=== PATIENT | female | born 1960 | race Caucasian/White ===

== ENCOUNTER 2018-09-30 14:20 | Emergency (ER) | payer BC ==
[2018-09-30 15:47] VITALS: BP 145/57
--- NOTE | 2018-09-30 16:03 | UC ---
Respiratory Complaint HPI - HPI Summary HPI Summary: Pt c/o cough,nasal congestion X 2 weeks. Pt is concerned that she has bronchitis and is requesting an antibiotics. Pt also c/o of "constant runny nose " - History of Current Complaint Chief Complaint: UCRespiratory Stated Complaint: RUNNY NOSE,COUGH,CONGESTION Time Seen by Provider: 09/30/18 15:44 Hx Obtained From: Patient Hx Last Menstrual Period: n/a ?: No Onset/Duration: Gradual Onset, Lasting Weeks, Still Present Timing: Constant Severity Initially: Mild Severity Currently: Moderate Pain Intensity: 0 Character: Cough: Productive Aggravating Factors: Deep Breaths, Recumbent Position Alleviating Factors: Nothing Associated Signs And Symptoms: Positive: URI, Nasal Congestion - Risk Factors Pulmonary Embolism Risk Factors: Smoking Cardiac Risk Factors: Smoking Tuberculosis Risk Factors: Smoking - Allergies/Home Medications Allergies/Adverse Reactions: Allergies Allergy/AdvReac Type Severity Reaction Status Date / Time ciprofloxacin [From Cipro] Allergy Severe Verified 09/30/18 15:49 joint pain erythromycin base Allergy Rash Verified 09/30/18 15:49 Home Medications: Home Medications Cholecalciferol (Vitamin D3) [Vitamin D3] 2,000 unit PO DAILY 09/30/18 [History Confirmed 09/30/18] Naproxen Sodium [Naproxen 220 mg] 220 mg PO DAILY PRN 09/30/18 [History Confirmed 09/30/18] Pro-Air Inhaler 2 puff INH DAILY PRN 09/30/18 [History] Spiriva Inhaler DEVICE* [Tiotropium Inhaler DEVICE*] 2 puff INH DAILY 09/30/18 [ History Confirmed 09/30/18] PMH/Surg Hx/FS Hx/Imm Hx Previously Healthy: Yes Respiratory History: COPD - Surgical History Surgical History: Yes Surgery Procedure, Year, and Place: 2013--SUBCLAVIAN STENT FAILED - [place]. 2013 SUBCLAVIAN BYPASS GRAFT - [place] ( [employer] ICAST BALLOON EXPANDABLE STENT - SPECIFIC SCANNING INFORMATION IN EMR W/ OP REPORT-) Left shoulder repairs; manipulated 05/2016. L. 2015 SUBCLAVIAN BYPASS GRAFT REPEATED( VESSELS CLIPPED,CLEARED FOR 1.5T ONLY BY DR MARTINS), REVERSAL 10/2015 DUE TO INFECTION- GRAFT REMOVED - [place]. - Family History Known Family History: Positive: Hypertension - Social History Occupation: Employed Full-time Lives: With Family Alcohol Use: Daily Alcohol Amount: 3-4 PER DAY Substance Use Type: None Smoking Status (MU): Heavy Every Day Tobacco Smoker Type: Cigarettes Amount Used/How Often: 1 PPD Length of Time of Smoking/Using Tobacco: 40 YRS Have You Smoked in the Last Year: Yes - PT HAS RX FOR PATCH - Immunization History Most Recent Influenza Vaccination: never Most Recent Tetanus Shot: unknown Most Recent Pneumonia Vaccination: never Review of Systems All Other Systems Reviewed And Are Negative: Yes Constitutional: Positive: Fatigue Skin: Positive: Negative Eyes: Positive: Negative ENT: Positive: Sinus Congestion Respiratory: Positive: Cough Cardiovascular: Positive: Negative Gastrointestinal: Positive: Negative Genitourinary: Positive: Negative Motor: Positive: Negative Neurovascular: Positive: Negative Musculoskeletal: Positive: Negative Neurological: Positive: Negative Psychological: Positive: Negative Is Patient Immunocompromised?: No Physical Exam Triage Information Reviewed: Yes Appearance: Ill-Appearing Vital Signs: Initial Vital Signs Temp 97.8 F 09/30/18 15:36 Pulse 92 09/30/18 15:36 Resp 18 09/30/18 15:36 BP 145/57 09/30/18 15:36 Pulse Ox 100 09/30/18 15:36 Vital Signs Reviewed: Yes Eye Exam: Normal ENT: Positive: Nasal congestion Dental Exam: Normal Neck exam: Normal Respiratory: Positive: Wheezing, Expiration Cardiovascular Exam: Normal Musculoskeletal Exam: Normal Neurological Exam: Normal Psychological Exam: Normal Skin Exam: Normal UC Diagnostic Evaluation - Laboratory O2 Sat by Pulse Oximetry: 100 Respiratory Course/Dx - Differential Dx/Diagnosis Differential Diagnosis/HQI/PQRI: Bronchitis, Influenza Provider Diagnosis: Bronchitis, Allergic rhinitis Discharge - Sign-Out/Discharge Documenting (check all that apply): Patient Departure All imaging exams completed and their final reports reviewed: No Studies - Discharge Plan Condition: Stable Disposition: HOME Prescriptions: Cetirizine* [ZyrTEC 10 MG TAB*] 10 mg PO DAILY #7 tab DOXYcycline CAP(*) [DOXYcycline 100MG CAP(*)] 100 mg PO Q12H #14 cap predniSONE TAB* [Deltasone 20 MG TAB*] 20 mg PO DAILY #4 tab Patient Education Materials: Acute Bronchitis (ED), Wheezing (ED) Referrals: Gisselle Tomas MD [Primary Care Provider] - If Needed - Billing Disposition and Condition Condition: STABLE Disposition: Home - Attestation Statements Provider Attestation: Per institutional requirements, I have reviewed the chart, however, I was not consulted specifically or made aware of this patient by the midlevel provider. I did not personally evaluate, interact with , or disposition this patient.
== END 2018-09-30 16:11 | disposition home or self-care (01) ==
LOC: UCCORT 14:20
DX: J44.9 Chronic obstructive pulmonary disease, unspecified (principal); J30.9 Allergic rhinitis, unspecified; Z88.1 Allergy status to other antibiotic agents; F17.210 Nicotine dependence, cigarettes, uncomplicated
CPT/HCPCS: 99212; G0463

== ENCOUNTER 2018-10-16 10:33 | Emergency (ER) | payer BC ==
[2018-10-16 11:05] VITALS: BP 156/74
--- NOTE | 2018-10-16 11:20 | UC ---
Respiratory Complaint HPI - HPI Summary HPI Summary: cough x 2 weeks cough is productive, yellow sputum + chest congestion , pnd , sinus pain and pressure no fever, , was placed on Doxy x 7 days , had some improvement but getting worse again - History of Current Complaint Chief Complaint: UCRespiratory Stated Complaint: COUGH CONGESTION EARS Time Seen by Provider: 10/16/18 11:09 Hx Obtained From: Patient Hx Last Menstrual Period: n/a Onset/Duration: Gradual Onset, Lasting Weeks - 2, Still Present Timing: Constant Severity Initially: Moderate Severity Currently: Moderate Pain Intensity: 1 Character: Cough: Productive Aggravating Factors: Exertion, Deep Breaths Alleviating Factors: Nothing Associated Signs And Symptoms: Positive: URI, Nasal Congestion, Sinus Discomfort. Negative: Dyspnea, Fever, Chills, Pleuritic Chest Pain, Wheezing, Hemoptysis, Dizziness - Allergies/Home Medications Allergies/Adverse Reactions: Allergies Allergy/AdvReac Type Severity Reaction Status Date / Time ciprofloxacin [From Cipro] Allergy Severe Verified 10/16/18 11:02 joint pain erythromycin base Allergy Rash Verified 10/16/18 11:02 Home Medications: Home Medications Albuterol HFA INHALER* [Ventolin HFA Inhaler*] 1 - 2 puff INH Q4H PRN 10/16/18 [ History Confirmed 10/16/18] Cyanocobalamin TAB* [Vitamin B12 TAB*] 1,000 mcg PO DAILY 10/16/18 [History Confirmed 10/16/18] Potassium Chlor TAB* [Klor Con ER TAB*] 10 meq PO DAILY 10/16/18 [History Confirmed 10/16/18] PMH/Surg Hx/FS Hx/Imm Hx Cardiovascular History: Hypertension Respiratory History: COPD - Surgical History Surgical History: Yes Surgery Procedure, Year, and Place: 2013--SUBCLAVIAN STENT FAILED - [place]. 2013 SUBCLAVIAN BYPASS GRAFT - [place] ( [employer] ICAST BALLOON EXPANDABLE STENT - SPECIFIC SCANNING INFORMATION IN EMR W/ OP REPORT-) Left shoulder repairs; manipulated 05/2016. L. 2014 SUBCLAVIAN BYPASS GRAFT REPEATED( VESSELS CLIPPED,CLEARED FOR 1.5T ONLY BY DR MARTINS), REVERSAL 10/2015 DUE TO INFECTION- GRAFT REMOVED - [place]. - Family History Known Family History: Positive: Hypertension - Social History Alcohol Use: Daily Alcohol Amount: 3-4 PER DAY Substance Use Type: None Smoking Status (MU): Heavy Every Day Tobacco Smoker Type: Cigarettes Amount Used/How Often: 1 PPD Length of Time of Smoking/Using Tobacco: Since Age 16 Have You Smoked in the Last Year: Yes - PT HAS RX FOR PATCH Household Exposure Type: Cigarettes - Immunization History Most Recent Influenza Vaccination: never Most Recent Tetanus Shot: unknown Most Recent Pneumonia Vaccination: never Review of Systems All Other Systems Reviewed And Are Negative: Yes Constitutional: Positive: Negative Skin: Positive: Negative Eyes: Positive: Negative ENT: Positive: Nasal Discharge, Sinus Congestion, Sinus Pain/Tenderness Respiratory: Positive: Cough Cardiovascular: Positive: Negative Is Patient Immunocompromised?: No Physical Exam Triage Information Reviewed: Yes Appearance: Well-Appearing, No Pain Distress, Well-Nourished Vital Signs: Initial Vital Signs Temp 97.9 F 10/16/18 10:59 Pulse 83 10/16/18 10:59 Resp 17 10/16/18 10:59 BP 156/74 10/16/18 10:59 Pulse Ox 100 10/16/18 10:59 Vital Signs Reviewed: Yes Eye Exam: Normal Eyes: Positive: Conjunctiva Clear ENT: Positive: Normal ENT inspection, Hearing grossly normal, Pharynx normal, Nasal congestion, Nasal drainage, TMs normal, Sinus tenderness Neck: Positive: Supple, Nontender, No Lymphadenopathy Respiratory Exam: Normal Respiratory: Positive: Chest non-tender, Lungs clear, Normal breath sounds Cardiovascular: Positive: RRR, No Murmur, Pulses Normal Skin Exam: Normal UC Diagnostic Evaluation - Laboratory O2 Sat by Pulse Oximetry: 100 Respiratory Course/Dx - Differential Dx/Diagnosis Provider Diagnosis: Sinusitis, Bronchitis Discharge - Sign-Out/Discharge Documenting (check all that apply): Patient Departure All imaging exams completed and their final reports reviewed: No Studies - Discharge Plan Condition: Stable Disposition: HOME Prescriptions: Amoxicillin/Clavulanate TAB* [Augmentin TAB 875*] 875 mg PO BID #20 tab Patient Education Materials: Sinusitis (ED), Acute Bronchitis (ED) Referrals: Gisselle Tomas MD [Primary Care Provider] - 7 Days - Billing Disposition and Condition Condition: STABLE Disposition: Home
== END 2018-10-16 11:21 | disposition home or self-care (01) ==
LOC: UCCORT 10:33
DX: J32.9 Chronic sinusitis, unspecified (principal); J40 Bronchitis, not specified as acute or chronic; Z88.1 Allergy status to other antibiotic agents; F17.210 Nicotine dependence, cigarettes, uncomplicated
CPT/HCPCS: 99212; G0463